=== PATIENT | male | born 1960 | race African-American/Black ===

== ENCOUNTER 2022-06-12 16:49 | Inpatient (IN) | payer OTHER ==
[2022-06-12 18:29] VITALS: RESP 18; BMI 32.8
[2022-06-12] MEDS ORDERED: BENZOCAINE/MENTHOL (CHLORASEPTIC ) LOZENGE MM PRN (19:36)
[2022-06-12] MEDS ORDERED: IBUPROFEN 400 MG TABLET (FP) PO PRN (19:36)
[2022-06-12] MEDS ORDERED: NICOTINE 10 MG CARTRIDGE (INHALER) IH PRN (19:36)
[2022-06-12] MEDS ORDERED: NALOXONE HCL (KLOXXADO) 8 MG SPRAY NS PRN (19:36)
[2022-06-12] MEDS ORDERED: MAGNESIUM CITRATE 300 ML BOTTLE PO PRN (19:36)
[2022-06-12] MEDS ORDERED: ACETAMINOPHEN 325 MG TABLET (FP) PO PRN ×2 (19:36)
[2022-06-12] MEDS ORDERED: MAG HYDROX/AL HYDROX/SIMETH 30 ML UNIT-DOSE CUP PO PRN (19:36)
[2022-06-12] MEDS ORDERED: BISMUTH SUBSALICYLATE 524 MG/30 ML PO PRN (19:36)
[2022-06-12] MEDS ORDERED: IBUPROFEN 600 MG TABLET (FP) PO PRN (19:36)
[2022-06-12] MEDS ORDERED: DICYCLOMINE HCL 10 MG CAPSULE PO PRN (19:36)
[2022-06-12] MEDS ORDERED: ONDANSETRON *ODT* 4 MG TABLET SL PRN (19:36)
[2022-06-12] MEDS ORDERED: METHOCARBAMOL 500 MG TABLET PO PRN (19:36)
[2022-06-12] MEDS ORDERED: MAGNESIUM HYDROX 2400MG/30ML ORAL SUSPENSION 30 ML CUP PO PRN (19:36)
[2022-06-12] MEDS ORDERED: LOPERAMIDE HCL 2 MG CAPSULE PO PRN (19:36)
[2022-06-12] MEDS ORDERED: cloNIDine HCL 0.1 MG TABLET PO PRN (19:36)
[2022-06-12] MEDS: hydrOXYzine PAMOATE 25 MG CAPSULE (FP) PO PRN (21:13)
[2022-06-12] MEDS: THIAMINE HCL 100 MG TABLET (FP) PO SCH (21:13)
[2022-06-12] MEDS: MELATONIN 5 MG TABLETS PO SCH (21:13)
[2022-06-13] MEDS ORDERED: methaDONE HCL 10 MG TABLET (FOR DETOX USE ONLY) PO ONE (10:00)
[2022-06-13] MEDS: PRENATAL VITAMINS W/ FOLIC ACID TABLET (FP) PO SCH (10:30)
[2022-06-13 13:42] LABS: HEMATOCRIT 30.3 % (35.4-49); HEMOGLOBIN 9.3 GM/dL (11.7-16.9); MCH 28.4 pg (25.7-33.7); MCHC 30.7 g/dl (32.0-35.9); MEAN CELL VOLUME 92.5 fl (80-96); MEAN PLT VOLUME 9.9 fl (7.5-11.1); PLATELET COUNT 135 10^3/uL (134-434); RBC 3.28 M/mm3 (4.00-5.60); WHITE BLOOD COUNT 5.3 K/mm3 (4.0-10.0)
[2022-06-13 14:00] LABS: CALCIUM 8.3 mg/dL (8.5-10.1)
[2022-06-13 14:02] LABS: BLOOD UREA NITROGEN 75.3 mg/dL (7-18)
[2022-06-13 14:05] LABS: BILIRUBIN,TOTAL 0.4 mg/dL (0.2-1); TOT PROT 6.5 g/dl (6.4-8.2)
[2022-06-13] MEDS: MELATONIN 5 MG TABLETS PO SCH (22:06)
[2022-06-13] MEDS: THIAMINE HCL 100 MG TABLET (FP) PO SCH (22:06)
[2022-06-14] MEDS: hydrOXYzine PAMOATE 25 MG CAPSULE (FP) PO PRN (05:35)
[2022-06-14] MEDS: PRENATAL VITAMINS W/ FOLIC ACID TABLET (FP) PO SCH (10:27)
[2022-06-14 11:04] LABS: CALCIUM 8.5 mg/dL (8.5-10.1)
[2022-06-14 11:08] LABS: CREATININE 2.5 mg/dL (0.55-1.3)
[2022-06-14 11:10] LABS: BILIRUBIN,TOTAL 0.4 mg/dL (0.2-1)
[2022-06-14 11:12] LABS: TOT PROT 6.7 g/dl (6.4-8.2)
[2022-06-14 11:15] LABS: BLOOD UREA NITROGEN 71.5 mg/dL (7-18)
[2022-06-14 13:21] VITALS: BP 164/125; PULSE 88; TEMP 97.5
== END 2022-06-14 14:50 | disposition other institution (70) | DRG 772 ==
LOC: YASAS 16:49 → Y3N 20:08
PROVIDERS: ADMIT Allergy & Immunology; ATTEND Surgery
PROC: HZ42ZZZ Group Counseling for Substance Abuse Treatment, Cognitive-Behavioral (ICD-10-PCS; principal; 2022-06-12)
DX: F11.20 Opioid dependence, uncomplicated (principal); F14.20 Cocaine dependence, uncomplicated; F17.210 Nicotine dependence, cigarettes, uncomplicated; I11.0 Hypertensive heart disease with heart failure; I50.9 Heart failure, unspecified; H54.61 Unqualified visual loss, right eye, normal vision left eye; R06.02 Shortness of breath; R94.31 Abnormal electrocardiogram [ECG] [EKG]; Z79.01 Long term (current) use of anticoagulants
CPT/HCPCS: 36415; 80053; 85027; 86780; C9803-CS; U0003; U0005

== ENCOUNTER 2022-06-14 14:46 | Inpatient (IN) | payer OTHER ==
[2022-06-14] MEDS ORDERED: MAGNESIUM CITRATE 300 ML BOTTLE PO PRN (15:27)
[2022-06-14] MEDS ORDERED: MAG HYDROX/AL HYDROX/SIMETH 30 ML UNIT-DOSE CUP PO PRN (15:27)
[2022-06-14] MEDS ORDERED: guaiFENesin 200 MG/10 ML 10 ML UNIT-DOSE CUPS PO PRN (15:27)
[2022-06-14] MEDS ORDERED: ACETAMINOPHEN 325 MG TABLET (FP) PO PRN (15:27)
[2022-06-14] MEDS ORDERED: hydrOXYzine PAMOATE 25 MG CAPSULE (FP) PO PRN (15:27)
[2022-06-14] MEDS ORDERED: LOPERAMIDE HCL 2 MG CAPSULE PO PRN (15:27)
[2022-06-14] MEDS ORDERED: P-EPHED 60MG/TRIPROLIDI 2.5MG TABLET PO PRN (15:27)
[2022-06-14] MEDS ORDERED: MAGNESIUM HYDROX 2400MG/30ML ORAL SUSPENSION 30 ML CUP PO PRN (15:27)
[2022-06-14] MEDS ORDERED: NICOTINE 10 MG CARTRIDGE (INHALER) IH PRN (15:27)
[2022-06-14] MEDS ORDERED: IBUPROFEN 400 MG TABLET (FP) PO PRN (15:27)
[2022-06-14] MEDS ORDERED: NALOXONE HCL (KLOXXADO) 8 MG SPRAY NS PRN (15:27)
[2022-06-14] MEDS ORDERED: ALBUTEROL SO4 2.5/IPRATROPIUM 0.5 INH SOL 3 ML VIAL.NEB. NEB PRN (16:10)
[2022-06-14] MEDS ORDERED: AMIODARONE HCL 200 MG TABLET PO SCH (16:15)
[2022-06-14] MEDS ORDERED: FUROSEMIDE 40 MG TABLET (FP) PO SCH (16:15)
[2022-06-14] MEDS ORDERED: PANTOPRAZOLE 20 MG TABLET PO SCH (16:15)
[2022-06-14] MEDS ORDERED: TUBERCULIN PPD 5 TU/0.1ML VIAL ID ONE ×2 (16:44→23:37)
[2022-06-14] MEDS ORDERED: ISOSORBIDE DINITRATE 10 MG TABLET PO SCH (18:00)
[2022-06-14] MEDS ORDERED: MELATONIN 5 MG TABLETS PO SCH (22:00)
[2022-06-14] MEDS: APIXABAN 5 MG TABLET PO SCH ×2 (22:26→23:57)
[2022-06-14] MEDS: CARVEDILOL 6.25 MG TABLET (FP) PO SCH ×2 (22:26→23:57)
[2022-06-14] MEDS: ATORVASTATIN CA 80 MG TABLET (FP) PO SCH ×2 (22:26→23:57)
[2022-06-14] MEDS: BRIMONIDINE TARTRATE 0.15% OPHTHALMIC 5 ML BOTTLE OU SCH ×2 (22:26→23:58)
[2022-06-14] MEDS: hydrALAZINE HCL 25 MG TABLET (FP) PO SCH ×2 (22:26→23:57)
[2022-06-14] MEDS: THIAMINE HCL 100 MG TABLET (FP) PO SCH ×2 (22:27→23:57)
[2022-06-14] MEDS: LATANOPROST 0.005% OPHTH SOLN 2.5ML BOTTLE OU SCH ×2 (22:27→23:58)
[2022-06-14] MEDS ORDERED: ALBUTEROL SO4 0.083% IH SOL 2.5 MG/3 ML VIAL.NEB. NEB PRN (23:15)
[2022-06-14] MEDS ORDERED: MELATONIN 5 MG TABLETS PO PRN (23:16)
[2022-06-14] MEDS ORDERED: SODIUM POLYSTYRENE SULFONATE 15 GM/60 ML BOTTLE PO ONE (23:17)
[2022-06-14 23:41] VITALS: TEMP 97.7
[2022-06-15 01:40] VITALS: BP 142/117; PULSE 114
[2022-06-15 04:07] VITALS: RESP 24
[2022-06-15] MEDS ORDERED: PRENATAL VITAMINS W/ FOLIC ACID TABLET (FP) PO SCH (10:00)
== END 2022-06-15 02:19 | disposition short-term general hospital (02) | DRG 772 ==
LOC: YASAS 14:46 → Y3E 14:50
PROVIDERS: ADMIT Allergy & Immunology; ATTEND Psychiatry & Neurology Pain Medicine
PROC: HZ42ZZZ Group Counseling for Substance Abuse Treatment, Cognitive-Behavioral (ICD-10-PCS; principal; 2022-06-14)
DX: F11.23 Opioid dependence with withdrawal (principal); F14.20 Cocaine dependence, uncomplicated; F17.210 Nicotine dependence, cigarettes, uncomplicated; I11.0 Hypertensive heart disease with heart failure; I50.9 Heart failure, unspecified; R06.02 Shortness of breath; R60.0 Localized edema; R94.31 Abnormal electrocardiogram [ECG] [EKG]; H54.61 Unqualified visual loss, right eye, normal vision left eye
CPT/HCPCS: 93005; 93010; 94640

== ENCOUNTER 2022-06-15 02:53 | Inpatient (IN) | payer OTHER ==
[2022-06-15] MEDS: ALBUTEROL SO4 2.5/IPRATROPIUM 0.5 INH SOL 3 ML VIAL.NEB. NEB SCH ×3 (03:30→04:19)
[2022-06-15] MEDS ORDERED: FUROSEMIDE 40 MG/4 ML INJECTABLE VIAL IVPUSH ONE ×2 (04:35→14:54)
[2022-06-15] MEDS ORDERED: FUROSEMIDE 40 MG/4 ML INJECTABLE VIAL ONE ×3 (05:20→14:48)
[2022-06-15 06:04] LABS: BASO % 0.5 % (0-2.0); EOS % 0.5 % (0-4.5); HEMATOCRIT 33.7 % (35.4-49); HEMOGLOBIN 10.4 GM/dL (11.7-16.9); MCH 28.1 pg (25.7-33.7); MCHC 30.9 g/dl (32.0-35.9); MEAN CELL VOLUME 90.8 fl (80-96); MEAN PLT VOLUME 9.7 fl (7.5-11.1); MONO % 7.7 % (3.8-10.2); NEUT % 84.3 % (42.8-82.8); PLATELET COUNT 151 10^3/uL (134-434); RBC 3.71 M/mm3 (4.00-5.60); RDW 17.8 % (11.9-15.9); WHITE BLOOD COUNT 8.9 K/mm3 (4.0-10.0)
[2022-06-15 06:23] LABS: CHLORIDE 116 mmol/L (98-107); SODIUM 144 mmol/L (136-145)
[2022-06-15 06:25] LABS: ALBUMIN 3.4 g/dl (3.4-5.0); ANION GAP 8 MMOL/L (8-16); BLOOD UREA NITROGEN 70.9 mg/dL (7-18); CALCIUM 8.3 mg/dL (8.5-10.1); CO2 21 mmol/L (21-32); GLUCOSE,RANDOM 114 mg/dL (74-106)
[2022-06-15 06:28] LABS: CREATININE 2.5 mg/dL (0.55-1.3); SGOT/AST 105 U/L (15-37); SGPT/ALT 154 U/L (13-61)
[2022-06-15 06:31] LABS: ALK PHOS 146 U/L (45-117); TOT PROT 7.6 g/dl (6.4-8.2)
[2022-06-15 06:31] LABS: EPI CELLS 12 /uL (0-25.1); HYALINE CASTS 1 /uL (0-3.1); URINE APPEARANCE CLEAR; URINE BACTERIA 84 /uL (0-1359); URINE BILIRUBIN NEGATIVE (NEGATIVE); URINE COLOR YELLOW; URINE GLUCOSE (UA) NEGATIVE (NEGATIVE); URINE KETONE NEGATIVE (NEGATIVE); URINE LEUK ESTERASE TRACE (NEGATIVE); URINE NITRITE NEGATIVE (NEGATIVE); URINE PROTEIN 2+ (NEGATIVE); URINE RBC 30 /uL (0-23.9); URINE UROBILINOGEN 0.2 mg/dL (0.2-1.0); URINE WBC 25 /uL (0-25.8)
[2022-06-15 06:33] LABS: N-TERMINAL BNP 22165.7 pg/ml (5-125)
[2022-06-15 06:34] LABS: COCAINE, UR NEGATIVE (NEGATIVE); URINE AMPHETAMINES NEGATIVE (NEGATIVE); URINE BENZODIAZEPINES NEGATIVE (NEGATIVE)
[2022-06-15 06:35] LABS: OPIATES, URI NEGATIVE (NEGATIVE); PHENCYCLIDINE,URINE NEGATIVE (NEGATIVE); URINE BARBITURATES NEGATIVE (NEGATIVE)
[2022-06-15 06:47] LABS: METHADONE, UR POSITIVE (NEGATIVE)
[2022-06-15 06:48] LABS: BILIRUBIN,TOTAL 0.7 mg/dL (0.2-1)
[2022-06-15] MEDS ORDERED: CARVEDILOL 6.25 MG TABLET (FP) ONE (09:26)
[2022-06-15] MEDS ORDERED: APIXABAN 5 MG TABLET ONE (09:26)
[2022-06-15] MEDS ORDERED: AMIODARONE HCL 200 MG TABLET ONE (09:26)
[2022-06-15] MEDS ORDERED: SPIRONOLACTONE 25 MG TABLET ONE (09:26)
[2022-06-15] MEDS ORDERED: PANTOPRAZOLE 20 MG TABLET PO ONE (09:26)
[2022-06-15] MEDS: PANTOPRAZOLE 20 MG TABLET PO SCH (09:39)
[2022-06-15] MEDS: NICOTINE 14 MG/24 HOURS TOPICAL PATCH TD SCH (09:39)
[2022-06-15] MEDS: SPIRONOLACTONE 25 MG TABLET PO SCH (09:39)
[2022-06-15] MEDS: APIXABAN 5 MG TABLET PO SCH ×2 (09:39→21:48)
[2022-06-15] MEDS: AMIODARONE HCL 200 MG TABLET PO SCH (09:39)
[2022-06-15] MEDS: CARVEDILOL 6.25 MG TABLET (FP) PO SCH ×2 (09:39→21:48)
[2022-06-15] MEDS: FUROSEMIDE 40 MG/4 ML INJECTABLE VIAL IVPUSH SCH (09:39)
[2022-06-15] MEDS: hydrALAZINE HCL 25 MG TABLET (FP) PO SCH ×2 (14:38→21:48)
[2022-06-15] MEDS: ISOSORBIDE DINITRATE 10 MG TABLET PO SCH ×2 (14:38→21:56)
[2022-06-15] MEDS ORDERED: hydrALAZINE HCL 25 MG TABLET (FP) ONE (14:42)
[2022-06-15] MEDS: ATORVASTATIN CA 80 MG TABLET (FP) PO SCH (21:48)
[2022-06-16] MEDS ORDERED: ACETAMINOPHEN 325 MG TABLET (FP) PO PRN (02:07)
[2022-06-16] MEDS: hydrALAZINE HCL 25 MG TABLET (FP) PO SCH ×3 (06:48→21:03)
[2022-06-16] MEDS ORDERED: IRON SUCROSE INJECTION 200 MG in SODIUM CHLORIDE 90 ML IVPB ONE (09:15)
[2022-06-16 09:20] LABS: BILIRUBIN,DIRECT 0.4 mg/dL (0.0-0.2)
[2022-06-16 09:22] LABS: BILIRUBIN,TOTAL 1.1 mg/dL (0.2-1); TOT PROT 6.7 g/dl (6.4-8.2)
[2022-06-16] MEDS: CARVEDILOL 6.25 MG TABLET (FP) PO SCH ×2 (09:50→21:03)
[2022-06-16] MEDS: APIXABAN 5 MG TABLET PO SCH ×2 (09:50→21:03)
[2022-06-16] MEDS: SPIRONOLACTONE 25 MG TABLET PO SCH (09:51)
[2022-06-16] MEDS: FUROSEMIDE 40 MG/4 ML INJECTABLE VIAL IVPUSH SCH (09:51)
[2022-06-16] MEDS: PANTOPRAZOLE 20 MG TABLET PO SCH (09:51)
[2022-06-16] MEDS: AMIODARONE HCL 200 MG TABLET PO SCH (09:51)
[2022-06-16] MEDS: NICOTINE 14 MG/24 HOURS TOPICAL PATCH TD SCH ×2 (09:51→10:02)
[2022-06-16] MEDS: ISOSORBIDE DINITRATE 10 MG TABLET PO SCH ×3 (09:52→17:11)
[2022-06-16 17:02] LABS: CALCIUM 8.3 mg/dL (8.5-10.1)
[2022-06-16 17:03] LABS: BLOOD UREA NITROGEN 71.1 mg/dL (7-18); MAGNESIUM 1.7 mg/dL (1.8-2.4)
[2022-06-16 17:07] LABS: CREATININE 2.6 mg/dL (0.55-1.3)
[2022-06-16 17:12] LABS: N-TERMINAL BNP 33813.1 pg/ml (5-125)
[2022-06-16] MEDS: ATORVASTATIN CA 80 MG TABLET (FP) PO SCH (21:03)
[2022-06-17] MEDS: hydrALAZINE HCL 25 MG TABLET (FP) PO SCH ×3 (05:08→22:22)
[2022-06-17 07:56] LABS: BASO % 0.8 % (0-2.0); EOS % 2.6 % (0-4.5); HEMATOCRIT 29.2 % (35.4-49); HEMOGLOBIN 9.3 GM/dL (11.7-16.9); LYMPH % 16.6 % (8-40); MCH 28.7 pg (25.7-33.7); MCHC 31.9 g/dl (32.0-35.9); MEAN PLT VOLUME 10.2 fl (7.5-11.1); MONO % 8.4 % (3.8-10.2); NEUT % 71.6 % (42.8-82.8); PLATELET COUNT 145 10^3/uL (134-434); RBC 3.25 M/mm3 (4.00-5.60); RDW 18.2 % (11.9-15.9); WHITE BLOOD COUNT 6.4 K/mm3 (4.0-10.0)
[2022-06-17 08:17] LABS: CALCIUM 8.3 mg/dL (8.5-10.1)
[2022-06-17 08:19] LABS: BLOOD UREA NITROGEN 73.5 mg/dL (7-18); MAGNESIUM 1.8 mg/dL (1.8-2.4)
[2022-06-17 08:21] LABS: CREATININE 2.8 mg/dL (0.55-1.3)
[2022-06-17] MEDS: ISOSORBIDE DINITRATE 10 MG TABLET PO SCH ×3 (09:59→17:41)
[2022-06-17] MEDS: APIXABAN 5 MG TABLET PO SCH ×2 (09:59→22:22)
[2022-06-17] MEDS: AMIODARONE HCL 200 MG TABLET PO SCH (09:59)
[2022-06-17] MEDS: FUROSEMIDE 40 MG/4 ML INJECTABLE VIAL IVPUSH SCH (09:59)
[2022-06-17] MEDS: PANTOPRAZOLE 20 MG TABLET PO SCH (09:59)
[2022-06-17] MEDS: CARVEDILOL 6.25 MG TABLET (FP) PO SCH ×2 (09:59→22:22)
[2022-06-17] MEDS: SPIRONOLACTONE 25 MG TABLET PO SCH (09:59)
[2022-06-17] MEDS: NICOTINE 14 MG/24 HOURS TOPICAL PATCH TD SCH (10:01)
[2022-06-17 13:34] VITALS: BMI 34.1
[2022-06-17] MEDS: ATORVASTATIN CA 80 MG TABLET (FP) PO SCH (22:23)
[2022-06-18] MEDS: hydrALAZINE HCL 25 MG TABLET (FP) PO SCH ×4 (05:53→21:04)
[2022-06-18 07:24] LABS: HEMATOCRIT 27.5 % (35.4-49); HEMOGLOBIN 8.8 GM/dL (11.7-16.9); MCH 28.9 pg (25.7-33.7); MEAN CELL VOLUME 90.5 fl (80-96); PLATELET COUNT 139 10^3/uL (134-434); RBC 3.03 M/mm3 (4.00-5.60); RDW 18.1 % (11.9-15.9); WHITE BLOOD COUNT 7.1 K/mm3 (4.0-10.0)
[2022-06-18 07:42] LABS: CALCIUM 8.1 mg/dL (8.5-10.1)
[2022-06-18 07:43] LABS: ALBUMIN 2.8 g/dl (3.4-5.0); BLOOD UREA NITROGEN 63.7 mg/dL (7-18); MAGNESIUM 1.9 mg/dL (1.8-2.4)
[2022-06-18 07:46] LABS: CREATININE 2.6 mg/dL (0.55-1.3); PHOSPHOROUS 3.5 mg/dL (2.5-4.9)
[2022-06-18 07:48] LABS: BILIRUBIN,TOTAL 0.5 mg/dL (0.2-1); TOT PROT 6.1 g/dl (6.4-8.2)
[2022-06-18] MEDS: FUROSEMIDE 40 MG/4 ML INJECTABLE VIAL IVPUSH SCH (09:03)
[2022-06-18] MEDS: NICOTINE 14 MG/24 HOURS TOPICAL PATCH TD SCH (09:03)
[2022-06-18] MEDS: SPIRONOLACTONE 25 MG TABLET PO SCH (09:03)
[2022-06-18] MEDS: APIXABAN 5 MG TABLET PO SCH ×2 (09:03→21:04)
[2022-06-18] MEDS: PANTOPRAZOLE 20 MG TABLET PO SCH (09:03)
[2022-06-18] MEDS: CARVEDILOL 6.25 MG TABLET (FP) PO SCH ×2 (09:03→21:04)
[2022-06-18] MEDS: AMIODARONE HCL 200 MG TABLET PO SCH (09:03)
[2022-06-18] MEDS: ISOSORBIDE DINITRATE 10 MG TABLET PO SCH ×3 (09:04→18:18)
[2022-06-18] MEDS ORDERED: SODIUM ZIRCONIUM CYCLOSILICATE (LOKELMA) 5 GM PACKET PO ONE (11:03)
[2022-06-18] MEDS ORDERED: guaiFENesin 200 MG/10 ML 10 ML UNIT-DOSE CUPS PO ONE (20:10)
[2022-06-18] MEDS: ATORVASTATIN CA 80 MG TABLET (FP) PO SCH (21:04)
[2022-06-19] MEDS: hydrALAZINE HCL 25 MG TABLET (FP) PO SCH ×3 (06:17→21:57)
[2022-06-19 07:27] LABS: BASO % 0.6 % (0-2.0); EOS % 1.4 % (0-4.5); HEMOGLOBIN 9.4 GM/dL (11.7-16.9); LYMPH % 10.2 % (8-40); MCH 29.3 pg (25.7-33.7); MCHC 32.4 g/dl (32.0-35.9); MEAN CELL VOLUME 90.3 fl (80-96); MEAN PLT VOLUME 8.9 fl (7.5-11.1); MONO % 9.7 % (3.8-10.2); NEUT % 78.1 % (42.8-82.8); PLATELET COUNT 124 10^3/uL (134-434); RBC 3.21 M/mm3 (4.00-5.60); RDW 17.8 % (11.9-15.9); WHITE BLOOD COUNT 6.5 K/mm3 (4.0-10.0)
[2022-06-19 07:43] LABS: ALBUMIN 2.8 g/dl (3.4-5.0)
[2022-06-19 07:44] LABS: BLOOD UREA NITROGEN 56.9 mg/dL (7-18); MAGNESIUM 1.8 mg/dL (1.8-2.4)
[2022-06-19 07:46] LABS: CREATININE 2.5 mg/dL (0.55-1.3); PHOSPHOROUS 3.5 mg/dL (2.5-4.9)
[2022-06-19 07:48] LABS: BILIRUBIN,TOTAL 0.5 mg/dL (0.2-1); TOT PROT 6.5 g/dl (6.4-8.2)
[2022-06-19] MEDS ORDERED: guaiFENesin/D-M SUGAR-FREE/ACLHOL-FREE 118 ML BOTTLE PO PRN (09:36)
[2022-06-19] MEDS: APIXABAN 5 MG TABLET PO SCH ×2 (10:45→21:57)
[2022-06-19] MEDS: CARVEDILOL 6.25 MG TABLET (FP) PO SCH (10:45)
[2022-06-19] MEDS: PANTOPRAZOLE 20 MG TABLET PO SCH (10:45)
[2022-06-19] MEDS: AMIODARONE HCL 200 MG TABLET PO SCH (10:45)
[2022-06-19] MEDS: ISOSORBIDE DINITRATE 10 MG TABLET PO SCH ×3 (10:45→17:28)
[2022-06-19] MEDS: SPIRONOLACTONE 25 MG TABLET PO SCH (10:45)
[2022-06-19] MEDS: NICOTINE 14 MG/24 HOURS TOPICAL PATCH TD SCH ×2 (10:45→11:09)
[2022-06-19] MEDS: FUROSEMIDE 40 MG/4 ML INJECTABLE VIAL IVPUSH SCH (10:45)
[2022-06-19] MEDS: guaiFENesin/D-METHORPHAN HB 10 ML UNIT-DOSE CUPS PO PRN ×2 (11:42→21:57)
[2022-06-19] MEDS ORDERED: CARVEDILOL 6.25 MG TABLET (FP) PO SCH (12:10)
[2022-06-19] MEDS: ATORVASTATIN CA 80 MG TABLET (FP) PO SCH (21:57)
[2022-06-19] MEDS: CARVEDILOL 12.5 MG TABLET (FP) PO SCH (21:57)
[2022-06-20] MEDS: guaiFENesin/D-METHORPHAN HB 10 ML UNIT-DOSE CUPS PO PRN (03:14)
[2022-06-20] MEDS: hydrALAZINE HCL 25 MG TABLET (FP) PO SCH ×2 (05:41→13:09)
[2022-06-20] MEDS: ISOSORBIDE DINITRATE 10 MG TABLET PO SCH ×2 (07:54→12:22)
[2022-06-20] MEDS: CARVEDILOL 12.5 MG TABLET (FP) PO SCH (09:20)
[2022-06-20] MEDS: SPIRONOLACTONE 25 MG TABLET PO SCH (09:20)
[2022-06-20] MEDS: PANTOPRAZOLE 20 MG TABLET PO SCH (09:20)
[2022-06-20] MEDS: AMIODARONE HCL 200 MG TABLET PO SCH (09:20)
[2022-06-20] MEDS: APIXABAN 5 MG TABLET PO SCH (09:20)
[2022-06-20] MEDS: NICOTINE 14 MG/24 HOURS TOPICAL PATCH TD SCH (09:21)
[2022-06-20 09:48] VITALS: RESP 18
[2022-06-20] MEDS ORDERED: FUROSEMIDE 40 MG TABLET (FP) PO SCH (10:00)
[2022-06-20 13:10] VITALS: BP 123/78; PULSE 88; TEMP 97.6
== END 2022-06-20 13:42 | disposition other institution (70) | DRG 194 ==
LOC: JER 02:53 → JERBED 05:06 → J4W 17:23
PROVIDERS: ADMIT Internal Medicine; ATTEND Internal Medicine
DX: I13.0 Hypertensive heart and chronic kidney disease with heart failure and stage 1 through stage 4 chronic kidney disease, or unspecified chronic kidney disease (principal); I50.23 Acute on chronic systolic (congestive) heart failure; E87.5 Hyperkalemia; I48.92 Unspecified atrial flutter; N17.9 Acute kidney failure, unspecified; K76.1 Chronic passive congestion of liver; N18.30 Chronic kidney disease, stage 3 unspecified; D64.9 Anemia, unspecified; F17.210 Nicotine dependence, cigarettes, uncomplicated; I48.20 Chronic atrial fibrillation, unspecified; J45.909 Unspecified asthma, uncomplicated; R74.01 Elevation of levels of liver transaminase levels
CPT/HCPCS: 36415; 71045-TC-FY; 76700-TC; 80048; 80053; 80061; 80076; 80307; 81003; 82550; 82728; 83540; 83550; 83735; 83880; 84100; 84443; 84484; 85025; 85027; 85045; 85379; 85610; 85730; 86704; 86709; 86803; 87086; 87340; 87517; 93005; 93010; 93306-TC; 93970-TC; 99285-25; C9803-CS; J1756; U0003; U0005

== ENCOUNTER 2022-06-20 13:58 | Inpatient (IN) | payer OTHER ==
[2022-06-20] MEDS ORDERED: ACETAMINOPHEN 325 MG TABLET (FP) PO PRN (15:39)
[2022-06-20] MEDS ORDERED: NICOTINE 10 MG CARTRIDGE (INHALER) IH PRN (15:39)
[2022-06-20] MEDS ORDERED: MAG HYDROX/AL HYDROX/SIMETH 30 ML UNIT-DOSE CUP PO PRN (15:39)
[2022-06-20] MEDS ORDERED: P-EPHED 60MG/TRIPROLIDI 2.5MG TABLET PO PRN (15:39)
[2022-06-20] MEDS ORDERED: IBUPROFEN 400 MG TABLET (FP) PO PRN (15:39)
[2022-06-20] MEDS ORDERED: MAGNESIUM HYDROX 2400MG/30ML ORAL SUSPENSION 30 ML CUP PO PRN (15:39)
[2022-06-20] MEDS ORDERED: hydrOXYzine PAMOATE 25 MG CAPSULE (FP) PO PRN (15:39)
[2022-06-20] MEDS ORDERED: MAGNESIUM CITRATE 300 ML BOTTLE PO PRN (15:39)
[2022-06-20] MEDS ORDERED: LOPERAMIDE HCL 2 MG CAPSULE PO PRN (15:39)
[2022-06-20 15:44] VITALS: BMI 33.3
[2022-06-20] MEDS: ISOSORBIDE DINITRATE 10 MG TABLET PO SCH (19:57)
[2022-06-20] MEDS: THIAMINE HCL 100 MG TABLET (FP) PO SCH (21:20)
[2022-06-20] MEDS: hydrALAZINE HCL 25 MG TABLET (FP) PO SCH (21:21)
[2022-06-20] MEDS: CARVEDILOL 12.5 MG TABLET (FP) PO SCH (21:21)
[2022-06-20] MEDS: APIXABAN 5 MG TABLET PO SCH (21:22)
[2022-06-20] MEDS: ATORVASTATIN CA 80 MG TABLET (FP) PO SCH (21:22)
[2022-06-20] MEDS ORDERED: MELATONIN 5 MG TABLETS PO SCH (22:00)
[2022-06-21] MEDS: guaiFENesin 200 MG/10 ML 10 ML UNIT-DOSE CUPS PO PRN (03:21)
[2022-06-21] MEDS: hydrALAZINE HCL 25 MG TABLET (FP) PO SCH ×3 (06:28→21:11)
[2022-06-21] MEDS: ISOSORBIDE DINITRATE 10 MG TABLET PO SCH ×3 (07:00→17:48)
[2022-06-21] MEDS: AMIODARONE HCL 200 MG TABLET PO SCH (09:24)
[2022-06-21] MEDS: CARVEDILOL 12.5 MG TABLET (FP) PO SCH ×2 (09:24→21:11)
[2022-06-21] MEDS: NICOTINE 7 MG/24 HOURS TOPICAL PATCH TD SCH (09:25)
[2022-06-21] MEDS: PRENATAL VITAMINS W/ FOLIC ACID TABLET (FP) PO SCH (09:25)
[2022-06-21] MEDS: APIXABAN 5 MG TABLET PO SCH ×2 (09:25→21:11)
[2022-06-21] MEDS: FUROSEMIDE 40 MG TABLET (FP) PO SCH (09:26)
[2022-06-21] MEDS: PANTOPRAZOLE 20 MG TABLET PO SCH (09:27)
[2022-06-21] MEDS: SPIRONOLACTONE 25 MG TABLET PO SCH (09:27)
[2022-06-21] MEDS ORDERED: COLLOIDAL OATMEAL 1 BAR EACH TP PRN (11:18)
[2022-06-21] MEDS: ALBUTEROL SO4 2.5/IPRATROPIUM 0.5 INH SOL 3 ML VIAL.NEB. NEB PRN (11:50)
[2022-06-21] MEDS: MINERAL OIL/PETROLAT/WATER TOPICAL CREAM 113 GM JAR TP SCH (12:16)
[2022-06-21] MEDS: ATORVASTATIN CA 80 MG TABLET (FP) PO SCH (21:11)
[2022-06-21] MEDS: THIAMINE HCL 100 MG TABLET (FP) PO SCH (21:11)
[2022-06-21] MEDS: SUVOREXANT 10 MG TABLET PO PRN (21:12)
[2022-06-22] MEDS: guaiFENesin 200 MG/10 ML 10 ML UNIT-DOSE CUPS PO PRN ×2 (02:40→09:18)
[2022-06-22] MEDS: ISOSORBIDE DINITRATE 10 MG TABLET PO SCH ×3 (07:11→18:45)
[2022-06-22] MEDS: hydrALAZINE HCL 25 MG TABLET (FP) PO SCH ×3 (07:11→21:15)
[2022-06-22] MEDS: FUROSEMIDE 40 MG TABLET (FP) PO SCH (09:15)
[2022-06-22] MEDS: AMIODARONE HCL 200 MG TABLET PO SCH (09:15)
[2022-06-22] MEDS: APIXABAN 5 MG TABLET PO SCH ×2 (09:15→21:14)
[2022-06-22] MEDS: CARVEDILOL 12.5 MG TABLET (FP) PO SCH ×2 (09:15→21:15)
[2022-06-22] MEDS: NICOTINE 7 MG/24 HOURS TOPICAL PATCH TD SCH (09:16)
[2022-06-22] MEDS: SPIRONOLACTONE 25 MG TABLET PO SCH (09:16)
[2022-06-22] MEDS: PANTOPRAZOLE 20 MG TABLET PO SCH (09:16)
[2022-06-22] MEDS: PRENATAL VITAMINS W/ FOLIC ACID TABLET (FP) PO SCH (09:16)
[2022-06-22] MEDS: MINERAL OIL/PETROLAT/WATER TOPICAL CREAM 113 GM JAR TP SCH (10:04)
[2022-06-22] MEDS ORDERED: NICOTINE 7 MG/24 HOURS TOPICAL PATCH TD PRN (10:43)
[2022-06-22] MEDS: THIAMINE HCL 100 MG TABLET (FP) PO SCH (21:14)
[2022-06-22] MEDS: ATORVASTATIN CA 80 MG TABLET (FP) PO SCH (21:14)
[2022-06-22] MEDS: SUVOREXANT 10 MG TABLET PO PRN (21:15)
[2022-06-23] MEDS: hydrALAZINE HCL 25 MG TABLET (FP) PO SCH ×3 (06:17→21:20)
[2022-06-23] MEDS: ISOSORBIDE DINITRATE 10 MG TABLET PO SCH ×3 (07:15→18:14)
[2022-06-23] MEDS: FUROSEMIDE 40 MG TABLET (FP) PO SCH (09:26)
[2022-06-23] MEDS: CARVEDILOL 12.5 MG TABLET (FP) PO SCH ×3 (09:26→21:20)
[2022-06-23] MEDS: PRENATAL VITAMINS W/ FOLIC ACID TABLET (FP) PO SCH (09:26)
[2022-06-23] MEDS: SPIRONOLACTONE 25 MG TABLET PO SCH (09:26)
[2022-06-23] MEDS: PANTOPRAZOLE 20 MG TABLET PO SCH (09:26)
[2022-06-23] MEDS: FERROUS SO4 325 MG TABLET (FP) PO SCH (09:27)
[2022-06-23] MEDS: APIXABAN 5 MG TABLET PO SCH ×2 (09:27→21:19)
[2022-06-23] MEDS: MINERAL OIL/PETROLAT/WATER TOPICAL CREAM 113 GM JAR TP SCH (09:28)
[2022-06-23] MEDS: AMIODARONE HCL 200 MG TABLET PO SCH (10:55)
[2022-06-23] MEDS: guaiFENesin 200 MG/10 ML 10 ML UNIT-DOSE CUPS PO PRN (20:34)
[2022-06-23] MEDS: ALBUTEROL SO4 HFA INHALER IH PRN (21:18)
[2022-06-23] MEDS: THIAMINE HCL 100 MG TABLET (FP) PO SCH (21:19)
[2022-06-23] MEDS: ATORVASTATIN CA 80 MG TABLET (FP) PO SCH (21:19)
[2022-06-23] MEDS: SUVOREXANT 10 MG TABLET PO PRN (21:20)
[2022-06-23 21:40] VITALS: RESP 18; TEMP 98.2
[2022-06-24] MEDS: guaiFENesin 200 MG/10 ML 10 ML UNIT-DOSE CUPS PO PRN (01:46)
[2022-06-24] MEDS: ALBUTEROL SO4 2.5/IPRATROPIUM 0.5 INH SOL 3 ML VIAL.NEB. NEB PRN ×2 (03:35→07:15)
[2022-06-24] MEDS: ALBUTEROL SO4 HFA INHALER IH PRN ×2 (03:49→08:22)
[2022-06-24] MEDS: hydrALAZINE HCL 25 MG TABLET (FP) PO SCH ×3 (05:57→21:39)
[2022-06-24] MEDS: ISOSORBIDE DINITRATE 10 MG TABLET PO SCH ×3 (07:22→18:51)
[2022-06-24 08:20] VITALS: BP 168/112; PULSE 110
[2022-06-24] MEDS: FUROSEMIDE 40 MG TABLET (FP) PO SCH (10:00)
[2022-06-24] MEDS: PANTOPRAZOLE 20 MG TABLET PO SCH (10:00)
[2022-06-24] MEDS: MINERAL OIL/PETROLAT/WATER TOPICAL CREAM 113 GM JAR TP SCH (10:00)
[2022-06-24] MEDS: FERROUS SO4 325 MG TABLET (FP) PO SCH (10:00)
[2022-06-24] MEDS: SPIRONOLACTONE 25 MG TABLET PO SCH (10:00)
[2022-06-24] MEDS: PRENATAL VITAMINS W/ FOLIC ACID TABLET (FP) PO SCH (10:00)
[2022-06-24] MEDS: AMIODARONE HCL 200 MG TABLET PO SCH (10:00)
[2022-06-24] MEDS: APIXABAN 5 MG TABLET PO SCH ×2 (10:00→21:40)
[2022-06-24] MEDS: CARVEDILOL 12.5 MG TABLET (FP) PO SCH ×2 (10:00→21:39)
[2022-06-24] MEDS: THIAMINE HCL 100 MG TABLET (FP) PO SCH (21:40)
[2022-06-24] MEDS: ATORVASTATIN CA 80 MG TABLET (FP) PO SCH (21:40)
== END 2022-06-21 08:46 | disposition short-term general hospital (02) | DRG 772 ==
LOC: YASAS 13:58 → Y3E 15:51
PROVIDERS: ADMIT Allergy & Immunology; ATTEND Psychiatry & Neurology Pain Medicine
PROC: HZ42ZZZ Group Counseling for Substance Abuse Treatment, Cognitive-Behavioral (ICD-10-PCS; principal; 2022-06-20)
DX: F11.20 Opioid dependence, uncomplicated (principal); F14.20 Cocaine dependence, uncomplicated; F12.20 Cannabis dependence, uncomplicated; F17.210 Nicotine dependence, cigarettes, uncomplicated; F19.282 Other psychoactive substance dependence with psychoactive substance-induced sleep disorder; J44.9 Chronic obstructive pulmonary disease, unspecified; I11.0 Hypertensive heart disease with heart failure; I50.9 Heart failure, unspecified; I48.92 Unspecified atrial flutter; R06.02 Shortness of breath; R07.9 Chest pain, unspecified; R00.0 Tachycardia, unspecified
CPT/HCPCS: 93005; 93010; 94640

== ENCOUNTER 2022-06-24 09:50 | Observation (INO) | payer OTHER ==
[2022-06-24] MEDS ORDERED: FUROSEMIDE 40 MG/4 ML INJECTABLE VIAL IVPUSH ONE (10:17)
[2022-06-24] MEDS ORDERED: FUROSEMIDE 40 MG/4 ML INJECTABLE VIAL ONE (11:14)
[2022-06-24 11:24] LABS: VENOUS BASE EXCESS -5.3 mmol/L (-2-2); VENOUS O2 SATURATION 87.1 % (70-80); VENOUS PH 7.362 (7.310-7.410)
[2022-06-24 11:30] LABS: BASO % 0.4 % (0-2.0); EOS % 1.1 % (0-4.5); HEMATOCRIT 31.1 % (35.4-49); LYMPH % 9.8 % (8-40); MCH 29.1 pg (25.7-33.7); MEAN CELL VOLUME 90.8 fl (80-96); MEAN PLT VOLUME 9.3 fl (7.5-11.1); MONO % 8.3 % (3.8-10.2); NEUT % 80.4 % (42.8-82.8); PLATELET COUNT 139 10^3/uL (134-434); RBC 3.42 M/mm3 (4.00-5.60); RDW 18.5 % (11.9-15.9); WHITE BLOOD COUNT 7.8 K/mm3 (4.0-10.0)
[2022-06-24 11:44] LABS: CALCIUM 8.5 mg/dL (8.5-10.1)
[2022-06-24 11:45] LABS: ALBUMIN 3.4 g/dl (3.4-5.0); BLOOD UREA NITROGEN 53.4 mg/dL (7-18); MAGNESIUM 2.1 mg/dL (1.8-2.4)
[2022-06-24 11:48] LABS: CREATININE 2.3 mg/dL (0.55-1.3)
[2022-06-24 11:49] LABS: BILIRUBIN,TOTAL 0.6 mg/dL (0.2-1); TOT PROT 7.4 g/dl (6.4-8.2)
[2022-06-24 11:54] LABS: N-TERMINAL BNP 19257.9 pg/ml (5-125)
[2022-06-24] MEDS ORDERED: ALBUTEROL SO4 2.5/IPRATROPIUM 0.5 INH SOL 3 ML VIAL.NEB. NEB PRN (17:38)
[2022-06-24] MEDS ORDERED: SODIUM ZIRCONIUM CYCLOSILICATE (LOKELMA) 5 GM PACKET PO SCH (17:45)
[2022-06-24] MEDS ORDERED: SODIUM ZIRCONIUM CYCLOSILICATE (LOKELMA) 5 GM PACKET ONE (18:10)
[2022-06-24] MEDS ORDERED: APIXABAN 5 MG TABLET ONE (22:18)
[2022-06-24] MEDS ORDERED: CARVEDILOL 12.5 MG TABLET (FP) ONE ×2 (22:19)
[2022-06-24] MEDS ORDERED: ATORVASTATIN CA 80 MG TABLET (FP) ONE (22:19)
[2022-06-24] MEDS: CARVEDILOL 12.5 MG TABLET (FP) PO SCH (22:29)
[2022-06-24] MEDS: ATORVASTATIN CA 80 MG TABLET (FP) PO SCH (22:29)
[2022-06-24] MEDS: APIXABAN 5 MG TABLET PO SCH (22:29)
[2022-06-25 06:05] VITALS: BMI 33.5
[2022-06-25] MEDS: FUROSEMIDE 40 MG/4 ML INJECTABLE VIAL IVPUSH SCH ×2 (06:33→13:47)
[2022-06-25] MEDS: PANTOPRAZOLE 40 MG TABLET PO SCH (09:35)
[2022-06-25] MEDS: APIXABAN 5 MG TABLET PO SCH ×2 (09:35→21:29)
[2022-06-25] MEDS: AMIODARONE HCL 200 MG TABLET PO SCH (09:35)
[2022-06-25] MEDS ORDERED: SPIRONOLACTONE 25 MG TABLET PO SCH (10:00)
[2022-06-25] MEDS ORDERED: ENOXAPARIN NA (PORCINE) 40 MG/0.4 ML DISP.SYRIN SQ SCH (10:00)
[2022-06-25] MEDS: BRIMONIDINE TARTRATE 0.1% OPHTHALMIC 5 ML BOTTLE OU SCH ×2 (11:32→12:03)
[2022-06-25] MEDS: ISOSORBIDE DINITRATE 10 MG TABLET PO SCH (12:01)
[2022-06-25 12:32] LABS: BASO % 0.5 % (0-2.0); EOS % 2.3 % (0-4.5); HEMATOCRIT 30.2 % (35.4-49); HEMOGLOBIN 9.9 GM/dL (11.7-16.9); LYMPH % 10.8 % (8-40); MCH 29.2 pg (25.7-33.7); MCHC 32.6 g/dl (32.0-35.9); MEAN CELL VOLUME 89.7 fl (80-96); MEAN PLT VOLUME 9.1 fl (7.5-11.1); MONO % 8.9 % (3.8-10.2); NEUT % 77.5 % (42.8-82.8); PLATELET COUNT 138 10^3/uL (134-434); RBC 3.37 M/mm3 (4.00-5.60); RDW 18.3 % (11.9-15.9); WHITE BLOOD COUNT 6.9 K/mm3 (4.0-10.0)
[2022-06-25 12:52] LABS: CALCIUM 8.4 mg/dL (8.5-10.1)
[2022-06-25 12:53] LABS: ALBUMIN 3.2 g/dl (3.4-5.0); BLOOD UREA NITROGEN 55.6 mg/dL (7-18); MAGNESIUM 2.3 mg/dL (1.8-2.4)
[2022-06-25 12:57] LABS: BILIRUBIN,TOTAL 0.7 mg/dL (0.2-1); CREATININE 2.4 mg/dL (0.55-1.3)
[2022-06-25] MEDS: ATORVASTATIN CA 80 MG TABLET (FP) PO SCH (21:29)
[2022-06-25] MEDS: hydrALAZINE HCL 25 MG TABLET (FP) PO SCH (21:29)
[2022-06-26] MEDS: FUROSEMIDE 40 MG/4 ML INJECTABLE VIAL IVPUSH SCH ×2 (06:36→14:12)
[2022-06-26 07:30] LABS: BASO % 0.6 % (0-2.0); EOS % 2.9 % (0-4.5); HEMATOCRIT 31.9 % (35.4-49); LYMPH % 13.9 % (8-40); MCH 28.1 pg (25.7-33.7); MCHC 31.2 g/dl (32.0-35.9); MEAN CELL VOLUME 89.9 fl (80-96); MEAN PLT VOLUME 9.1 fl (7.5-11.1); MONO % 7.6 % (3.8-10.2); PLATELET COUNT 149 10^3/uL (134-434); RBC 3.55 M/mm3 (4.00-5.60); RDW 18.1 % (11.9-15.9); WHITE BLOOD COUNT 7.2 K/mm3 (4.0-10.0)
[2022-06-26 07:53] LABS: CALCIUM 7.9 mg/dL (8.5-10.1)
[2022-06-26 07:54] LABS: ALBUMIN 3.1 g/dl (3.4-5.0); BLOOD UREA NITROGEN 55.3 mg/dL (7-18); MAGNESIUM 2.2 mg/dL (1.8-2.4)
[2022-06-26 07:57] LABS: CREATININE 2.4 mg/dL (0.55-1.3); PHOSPHOROUS 4.3 mg/dL (2.5-4.9)
[2022-06-26 07:58] LABS: TOT PROT 6.8 g/dl (6.4-8.2)
[2022-06-26 07:59] LABS: BILIRUBIN,TOTAL 0.8 mg/dL (0.2-1)
[2022-06-26 10:26] VITALS: RESP 18
[2022-06-26] MEDS: hydrALAZINE HCL 25 MG TABLET (FP) PO SCH (10:26)
[2022-06-26] MEDS: APIXABAN 5 MG TABLET PO SCH (10:33)
[2022-06-26] MEDS: PANTOPRAZOLE 40 MG TABLET PO SCH (10:33)
[2022-06-26] MEDS: AMIODARONE HCL 200 MG TABLET PO SCH (10:34)
[2022-06-26] MEDS: BRIMONIDINE TARTRATE 0.1% OPHTHALMIC 5 ML BOTTLE OU SCH (10:41)
[2022-06-26] MEDS: ISOSORBIDE DINITRATE 10 MG TABLET PO SCH ×2 (11:22→14:12)
[2022-06-26] MEDS: CARVEDILOL 12.5 MG TABLET (FP) PO SCH (11:24)
[2022-06-26 15:24] VITALS: BP 104/71; PULSE 76; TEMP 98.5
== END 2022-06-26 15:28 | disposition other institution (70) ==
LOC: JER 09:50 → INTOOBSV 15:02 → JERBED 15:02 → UNDOADMOB 15:02 → J4W 06-25 05:30 → JERBED 06-25 05:30 → J4W 06-25 13:46 → JERBED 06-25 13:46 → J4W 06-25 19:02
PROVIDERS: ADMIT Family Medicine; ATTEND Internal Medicine
PROC: 3E033GC Introduction of Other Therapeutic Substance into Peripheral Vein, Percutaneous Approach (ICD-10-PCS; principal; 2022-06-25)
DX: I11.0 Hypertensive heart disease with heart failure (principal); I50.9 Heart failure, unspecified; R06.02 Shortness of breath; E66.8 Other obesity; Z68.32 Body mass index [BMI] 32.0-32.9, adult; J45.909 Unspecified asthma, uncomplicated; F17.210 Nicotine dependence, cigarettes, uncomplicated
CPT/HCPCS: 0241U-QW; 36415; 71045-TC-FY; 80053; 82803; 83735; 83880; 84100; 84484; 85025; 93005; 93010; 94761; 96374; 96376; 97116-GP; 97161-GP; 99285-25; G0378

== ENCOUNTER 2022-06-26 15:12 | Inpatient (IN) | payer OTHER ==
[2022-06-26] MEDS ORDERED: MAGNESIUM HYDROX 2400MG/30ML ORAL SUSPENSION 30 ML CUP PO PRN (16:44)
[2022-06-26] MEDS ORDERED: ACETAMINOPHEN 325 MG TABLET (FP) PO PRN (16:44)
[2022-06-26] MEDS ORDERED: IBUPROFEN 400 MG TABLET (FP) PO PRN (16:44)
[2022-06-26] MEDS ORDERED: LOPERAMIDE HCL 2 MG CAPSULE PO PRN (16:44)
[2022-06-26] MEDS ORDERED: P-EPHED 60MG/TRIPROLIDI 2.5MG TABLET PO PRN (16:44)
[2022-06-26] MEDS ORDERED: guaiFENesin 200 MG/10 ML 10 ML UNIT-DOSE CUPS PO PRN (16:44)
[2022-06-26] MEDS ORDERED: MAGNESIUM CITRATE 300 ML BOTTLE PO PRN (16:44)
[2022-06-26] MEDS ORDERED: MAG HYDROX/AL HYDROX/SIMETH 30 ML UNIT-DOSE CUP PO PRN (16:44)
[2022-06-26] MEDS ORDERED: BENZOCAINE/MENTHOL (CHLORASEPTIC ) LOZENGE MM PRN (16:44)
[2022-06-26] MEDS ORDERED: ALBUTEROL SO4 2.5/IPRATROPIUM 0.5 INH SOL 3 ML VIAL.NEB. NEB PRN (16:49)
[2022-06-26] MEDS: ISOSORBIDE DINITRATE 10 MG TABLET PO SCH (19:15)
[2022-06-26] MEDS: THIAMINE HCL 100 MG TABLET (FP) PO SCH (21:15)
[2022-06-26] MEDS: MELATONIN 5 MG TABLETS PO PRN (21:15)
[2022-06-26] MEDS: CARVEDILOL 12.5 MG TABLET (FP) PO SCH (21:15)
[2022-06-26] MEDS ORDERED: ATORVASTATIN CA 40 MG TABLET (FP) ONE (21:16)
[2022-06-26] MEDS: APIXABAN 5 MG TABLET PO SCH (21:16)
[2022-06-26] MEDS: ATORVASTATIN CA 80 MG TABLET (FP) PO SCH (21:16)
[2022-06-26] MEDS: hydrALAZINE HCL 25 MG TABLET (FP) PO SCH (21:44)
[2022-06-27] MEDS: hydrALAZINE HCL 25 MG TABLET (FP) PO SCH ×3 (06:46→21:31)
[2022-06-27] MEDS: ISOSORBIDE DINITRATE 10 MG TABLET PO SCH ×3 (07:16→17:41)
[2022-06-27] MEDS: PRENATAL VITAMINS W/ FOLIC ACID TABLET (FP) PO SCH (09:53)
[2022-06-27] MEDS: FUROSEMIDE 40 MG TABLET (FP) PO SCH (09:53)
[2022-06-27] MEDS: APIXABAN 5 MG TABLET PO SCH ×2 (09:53→21:30)
[2022-06-27] MEDS: PANTOPRAZOLE 20 MG TABLET PO SCH (09:54)
[2022-06-27] MEDS: SPIRONOLACTONE 25 MG TABLET PO SCH (09:54)
[2022-06-27] MEDS: CARVEDILOL 12.5 MG TABLET (FP) PO SCH ×2 (09:54→21:30)
[2022-06-27] MEDS: BRIMONIDINE TARTRATE 0.1% OPHTHALMIC 5 ML BOTTLE OU SCH (09:56)
[2022-06-27] MEDS: AMIODARONE HCL 200 MG TABLET PO SCH (11:50)
[2022-06-27] MEDS: SODIUM ZIRCONIUM CYCLOSILICATE (LOKELMA) 5 GM PACKET PO SCH (13:10)
[2022-06-27] MEDS ORDERED: ATORVASTATIN CA 40 MG TABLET (FP) ONE (18:36)
[2022-06-27] MEDS: ATORVASTATIN CA 80 MG TABLET (FP) PO SCH (21:30)
[2022-06-27] MEDS: MELATONIN 5 MG TABLETS PO PRN (21:30)
[2022-06-27] MEDS: THIAMINE HCL 100 MG TABLET (FP) PO SCH (21:30)
[2022-06-28] MEDS: hydrALAZINE HCL 25 MG TABLET (FP) PO SCH ×3 (06:18→21:02)
[2022-06-28] MEDS: ISOSORBIDE DINITRATE 10 MG TABLET PO SCH ×3 (07:05→17:04)
[2022-06-28] MEDS: PRENATAL VITAMINS W/ FOLIC ACID TABLET (FP) PO SCH (09:51)
[2022-06-28] MEDS: SODIUM ZIRCONIUM CYCLOSILICATE (LOKELMA) 5 GM PACKET PO SCH (09:51)
[2022-06-28] MEDS: FUROSEMIDE 40 MG TABLET (FP) PO SCH (09:52)
[2022-06-28] MEDS: SPIRONOLACTONE 25 MG TABLET PO SCH (09:52)
[2022-06-28] MEDS: BRIMONIDINE TARTRATE 0.1% OPHTHALMIC 5 ML BOTTLE OU SCH (09:52)
[2022-06-28] MEDS: PANTOPRAZOLE 20 MG TABLET PO SCH (09:52)
[2022-06-28] MEDS: APIXABAN 5 MG TABLET PO SCH ×2 (09:52→21:01)
[2022-06-28] MEDS: CARVEDILOL 12.5 MG TABLET (FP) PO SCH ×2 (09:52→21:01)
[2022-06-28] MEDS: AMIODARONE HCL 200 MG TABLET PO SCH (09:53)
[2022-06-28] MEDS ORDERED: ATORVASTATIN CA 40 MG TABLET (FP) ONE (18:51)
[2022-06-28] MEDS: THIAMINE HCL 100 MG TABLET (FP) PO SCH (21:01)
[2022-06-28] MEDS: MELATONIN 5 MG TABLETS PO PRN (21:01)
[2022-06-28] MEDS: ATORVASTATIN CA 80 MG TABLET (FP) PO SCH (21:02)
[2022-06-29] MEDS: hydrALAZINE HCL 25 MG TABLET (FP) PO SCH (05:51)
[2022-06-29 06:54] VITALS: BP 143/90; PULSE 109; RESP 20; TEMP 98.7
[2022-06-29] MEDS: ISOSORBIDE DINITRATE 10 MG TABLET PO SCH (07:02)
[2022-06-29] MEDS: PRENATAL VITAMINS W/ FOLIC ACID TABLET (FP) PO SCH (09:16)
[2022-06-29] MEDS: SPIRONOLACTONE 25 MG TABLET PO SCH (09:17)
[2022-06-29] MEDS: AMIODARONE HCL 200 MG TABLET PO SCH (09:17)
[2022-06-29] MEDS: PANTOPRAZOLE 20 MG TABLET PO SCH (09:17)
[2022-06-29] MEDS: APIXABAN 5 MG TABLET PO SCH (09:17)
[2022-06-29] MEDS: FUROSEMIDE 40 MG TABLET (FP) PO SCH (09:17)
[2022-06-29] MEDS: CARVEDILOL 12.5 MG TABLET (FP) PO SCH (09:17)
[2022-06-29] MEDS: BRIMONIDINE TARTRATE 0.1% OPHTHALMIC 5 ML BOTTLE OU SCH (09:18)
[2022-06-29] MEDS: SODIUM ZIRCONIUM CYCLOSILICATE (LOKELMA) 5 GM PACKET PO SCH (09:18)
== END 2022-06-29 09:21 | disposition home or self-care (01) | DRG 772 ==
LOC: YASAS 15:12 → Y3W 16:48
PROVIDERS: ADMIT Allergy & Immunology; ATTEND Surgery
PROC: HZ42ZZZ Group Counseling for Substance Abuse Treatment, Cognitive-Behavioral (ICD-10-PCS; principal; 2022-06-26)
DX: F11.20 Opioid dependence, uncomplicated (principal); F14.20 Cocaine dependence, uncomplicated; F17.210 Nicotine dependence, cigarettes, uncomplicated; F19.282 Other psychoactive substance dependence with psychoactive substance-induced sleep disorder; I48.91 Unspecified atrial fibrillation; I13.0 Hypertensive heart and chronic kidney disease with heart failure and stage 1 through stage 4 chronic kidney disease, or unspecified chronic kidney disease; N18.9 Chronic kidney disease, unspecified; I50.9 Heart failure, unspecified; R60.0 Localized edema; Z79.01 Long term (current) use of anticoagulants
CPT/HCPCS: 71045-TC-FY; 94640